=== PATIENT | female | born 1980 | race Caucasian/White ===

== ENCOUNTER 2017-12-09 22:00 | Emergency (ER) | payer SELFPAY ==
[~2017-12-09] VITALS: Ht 157.5 cm; Wt 84.0 kg
[2017-12-09 22:21] VITALS: BP 132/77; PULSE 116; RESP 18; TEMP 102.7; O2SAT 100
[2017-12-09] MEDS ORDERED: cefTRIAXone INJ 1,000 MG in SODIUM CHLORIDE 0.9% INJ 100 ML IV ONE (23:15)
[2017-12-09] MEDS ORDERED: KETOROLAC TROMETHAMINE 30 MG/ML (IVP) VIAL IV PUSH ONE (23:15)
[2017-12-09] MEDS ORDERED: SODIUM CHLOR 0.9% 1000 ML INJ 1,000 ML IV ONE (23:15)
[2017-12-09] MEDS ORDERED: ACETAMINOPHEN 500 MG CPLT PO ONE (23:15)
--- NOTE | 2017-12-09 23:20 | PD ---
HPI Chief Complaint: Cold / Flu Symptoms Time Seen by Provider: 23:04 Travel History International Travel<30 days: No Contact w/Intl Traveler<30days: No Traveled to known affect area: No History of Present Illness HPI 37-year-old female presents emergency department with a four-day history of left lower back pain, subjective fever and chills, lower abdominal pain, dysuria and frequency. She denies any cough, congestion, nausea, vomiting , vaginal discharge or abnormal bleeding. No hematuria. Symptoms are moderate. She is not taking any medications other than [id number]. No alleviating factors. Worsened by movement. PFSH Past Medical History Medical History: Denies Significant Hx Tetanus Vaccination: < 5 Years LMP: Beginning of the month Past Surgical History Narrative Surgical Herniorrhaphy Social History Alcohol Use: No Tobacco Use: No Substance Use: No Allergies-Medications (Allergen,Severity, Reaction): Coded Allergies: No Known Allergies (Unverified , 12/09/17) Reported Meds & Prescriptions Reported Meds & Active Scripts Active Diclofenac Sodium DR (Diclofenac Sodium) 50 Mg Tabdr 50 Mg PO TID Keflex (Cephalexin) 500 Mg Capsule 500 Mg PO Q8H 10 Days Review of Systems General / Constitutional: Positive: Fever, Chills Eyes: No: Visual changes HENT: No: Headaches Cardiovascular: No: Chest Pain or Discomfort Respiratory: No: Shortness of Breath Gastrointestinal: Positive: Abdominal Pain, No: Nausea, Vomiting, Diarrhea Genitourinary: Positive: Frequency, Dysuria, No: Hematuria, Pelvic Pain, Discharge Musculoskeletal: Positive: Myalgias, Limited ROM, Pain (Left flank), No: Arthralgias, Weakness Skin: No Rash Neurologic: No: Weakness Psychiatric: No: Depression Endocrine: No: Polydipsia Hematologic/Lymphatic: No: Easy Bruising Physical Exam Narrative GENERAL: Well-developed, well-nourished in no apparent distress. Nontoxic appearing. HEAD: Normocephalic, atraumatic. EYES: Pupils equal round and reactive. Extraocular motions intact. No scleral icterus. No injection or drainage. ENT: Nose clear. Throat without erythema, tonsillar hypertrophy or exudate. Uvula midline. Airway patent. NECK: Trachea midline. Supple, nontender, moves head freely. No central bony tenderness or spasm. CARDIOVASCULAR: Regular rate and rhythm without murmurs, gallops, or rubs. RESPIRATORY: Clear to auscultation. Breath sounds equal bilaterally. No wheezes , rales, or rhonchi. GASTROINTESTINAL: Abdomen soft, Diffuse lower abdominal tenderness more so on the left than the right., nondistended. No hepato-splenomegaly, or palpable masses. No guarding. No rebound. EXTREMITIES: No clubbing, cyanosis, or edema. No joint tenderness. BACK: Left paralumbar tenderness without deformity. Positive left flank tenderness. NEUROLOGICAL: Awake, alert and oriented x 3 .Cranial nerves grossly intact. Motor and sensory grossly within normal limits. Normal speech. Data Data Last Documented VS Vital Signs Date Time Temp Pulse Resp B/P (MAP) Pulse Ox O2 Delivery O2 Flow Rate FiO2 12/10/17 01:57 98.9 77 18 99/50 (66) 99 Room Air Orders Orders Complete Blood Count With Diff (12/09/17 23:09) Comprehensive Metabolic Panel (12/09/17 23:09) Urinalysis - C+S If Indicated (12/09/17 23:09) Iv Access Insert/Monitor (12/09/17 23:09) Ed Urine Pregnancytest Poc (12/09/17 23:09) Sodium Chlor 0.9% 1000 Ml Inj (Ns 1000 M (12/09/17 23:15) Ceftriaxone Inj (Rocephin Inj) (12/09/17 23:15) Ketorolac Inj (Toradol Inj) (12/09/17 23:15) Acetaminophen (Tylenol) (12/09/17 23:15) Urine Culture (12/09/17 23:30) Ct Abd/Pel W Iv Contrast(Rout) (12/10/17 00:24) Iohexol 350 Inj (Omnipaque 350 Inj) (12/10/17 01:11) Labs Laboratory Tests Test 12/09/17 23:30 White Blood Count 17.3 TH/MM3 Red Blood Count 4.89 MIL/MM3 Hemoglobin 8.9 GM/DL Hematocrit 29.1 % Mean Corpuscular Volume 59.6 FL Mean Corpuscular Hemoglobin 18.2 PG Mean Corpuscular Hemoglobin Concent 30.5 % Red Cell Distribution Width 21.7 % Platelet Count 287 TH/MM3 Mean Platelet Volume 8.4 FL Neutrophils (%) (Auto) 76.9 % Lymphocytes (%) (Auto) 7.4 % Monocytes (%) (Auto) 15.1 % Eosinophils (%) (Auto) 0.3 % Basophils (%) (Auto) 0.3 % Neutrophils # (Auto) 13.3 TH/MM3 Lymphocytes # (Auto) 1.3 TH/MM3 Monocytes # (Auto) 2.6 TH/MM3 Eosinophils # (Auto) 0.0 TH/MM3 Basophils # (Auto) 0.0 TH/MM3 CBC Comment AUTO DIFF Differential Total Cells Counted 100 Neutrophils % (Manual) 65 % Band Neutrophils % 13 % Lymphocytes % 6 % Monocytes % 15 % Basophils % 1 % Neutrophils # (Manual) 13.5 TH/MM3 Differential Comment FINAL DIFF MANUAL Platelet Estimate NORMAL Platelet Morphology Comment NORMAL Basophilic Stippling FAINT Acanthocytes OCC Urine Color YELLOW Urine Turbidity HAZY Urine pH 7.5 Urine Specific [place] 1.010 Urine Protein TRACE mg/dL Urine Glucose (UA) NEG mg/dL Urine Ketones NEG mg/dL Urine Occult Blood NEG Urine Nitrite NEG Urine Bilirubin NEG Urine Urobilinogen LESS THAN 2.0 MG/DL Urine Leukocyte Esterase MOD Urine RBC 1 /hpf Urine WBC 9 /hpf Urine Squamous Epithelial Cells 23 /hpf Microscopic Urinalysis Comment CULTURE INDICATED Blood Urea Nitrogen 7 MG/DL Creatinine 0.86 MG/DL Random Glucose 101 MG/DL Total Protein 8.0 GM/DL Albumin 3.7 GM/DL Calcium Level 8.3 MG/DL Alkaline Phosphatase 49 U/L Aspartate Amino Transf (AST/SGOT) 15 U/L Alanine Aminotransferase (ALT/SGPT) 13 U/L Total Bilirubin 0.3 MG/DL Sodium Level 138 MEQ/L Potassium Level 3.4 MEQ/L Chloride Level 103 MEQ/L Carbon Dioxide Level 25.3 MEQ/L Anion Gap 10 MEQ/L Estimat Glomerular Filtration Rate 74 ML/MIN [facility] Medical Decision Making Medical Screen Exam Complete: Yes Emergency Medical Condition: Yes Medical Record Reviewed: Yes Interpretation(s) CBC & BMP Diagram 12/09/17 23:30 Total Protein 8.0, Albumin 3.7, Calcium Level 8.3 L, Alkaline Phosphatase 49, Aspartate Amino Transf (AST/SGOT) 15, Alanine Aminotransferase (ALT/SGPT) 13, Total Bilirubin 0.3 Laboratory Tests Test 12/09/17 23:30 White Blood Count 17.3 TH/MM3 Red Blood Count 4.89 MIL/MM3 Hemoglobin 8.9 GM/DL Hematocrit 29.1 % Mean Corpuscular Volume 59.6 FL Mean Corpuscular Hemoglobin 18.2 PG Mean Corpuscular Hemoglobin Concent 30.5 % Red Cell Distribution Width 21.7 % Platelet Count 287 TH/MM3 Mean Platelet Volume 8.4 FL Neutrophils (%) (Auto) 76.9 % Lymphocytes (%) (Auto) 7.4 % Monocytes (%) (Auto) 15.1 % Eosinophils (%) (Auto) 0.3 % Basophils (%) (Auto) 0.3 % Neutrophils # (Auto) 13.3 TH/MM3 Lymphocytes # (Auto) 1.3 TH/MM3 Monocytes # (Auto) 2.6 TH/MM3 Eosinophils # (Auto) 0.0 TH/MM3 Basophils # (Auto) 0.0 TH/MM3 CBC Comment AUTO DIFF Differential Total Cells Counted 100 Neutrophils % (Manual) 65 % Band Neutrophils % 13 % Lymphocytes % 6 % Monocytes % 15 % Basophils % 1 % Neutrophils # (Manual) 13.5 TH/MM3 Differential Comment FINAL DIFF MANUAL Platelet Estimate NORMAL Platelet Morphology Comment NORMAL Basophilic Stippling FAINT Acanthocytes OCC Urine Color YELLOW Urine Turbidity HAZY Urine pH 7.5 Urine Specific [place] 1.010 Urine Protein TRACE mg/dL Urine Glucose (UA) NEG mg/dL Urine Ketones NEG mg/dL Urine Occult Blood NEG Urine Nitrite NEG Urine Bilirubin NEG Urine Urobilinogen LESS THAN 2.0 MG/DL Urine Leukocyte Esterase MOD Urine RBC 1 /hpf Urine WBC 9 /hpf Urine Squamous Epithelial Cells 23 /hpf Microscopic Urinalysis Comment CULTURE INDICATED Blood Urea Nitrogen 7 MG/DL Creatinine 0.86 MG/DL Random Glucose 101 MG/DL Total Protein 8.0 GM/DL Albumin 3.7 GM/DL Calcium Level 8.3 MG/DL Alkaline Phosphatase 49 U/L Aspartate Amino Transf (AST/SGOT) 15 U/L Alanine Aminotransferase (ALT/SGPT) 13 U/L Total Bilirubin 0.3 MG/DL Sodium Level 138 MEQ/L Potassium Level 3.4 MEQ/L Chloride Level 103 MEQ/L Carbon Dioxide Level 25.3 MEQ/L Anion Gap 10 MEQ/L Estimat Glomerular Filtration Rate 74 ML/MIN Differential Diagnosis Differential diagnosis: Myofascial back pain, flank pain, pyelonephritis, UTI, diverticulitis, vaginitis, UTI, appendicitis Narrative Course IV access is obtained. Routine laboratory tests of analysis including CBC, chemistry, UA. 1000mg Tylenol p.o., Toradol 30 mg IV. Rocephin [address] of the abdomen and pelvis. The patient's vital signs have been repeated and now she is afebrile and not tachycardic. The patient is feeling better but not resolved. She still has some lower pelvic discomfort. She denies any pelvic or vaginal complaints. She has uterine fibroid noted on the CAT scan but no obvious acute intra- abdominal process. Patient has numerous squamous cells but does have some WBCs and this may be a urinary tract infection along with myofascial back pain. I have also discussed other etiologies of her pain including viral gastroenteritis. The patient is encouraged to recheck tomorrow with the [facility] or recheck in the ER in 12-24 hours if she cannot be seen. She is also advised to return to the ER sooner if symptoms worsen. Patient is also made aware for uterine fibroid on her CAT scan. I suspect her anemia is secondary to her uterine fibroid in dysfunctional bleeding. This is abdominal pain, UTI, back pain Diagnosis Primary Impression: Abdominal pain Additional Impressions: UTI Back pain Referrals: [facility] 1 day Patient Instructions: General Instructions Additional Instructions: Rest. Force fluids. Diclofenac. Keflex. Recheck with the [facility] tomorrow. If you cannot recheck with the [facility] recheck in 12-24 hours with the ER. Return to the ER sooner if any problems worsen or do not start to improve or if symptoms worsen. Med/Other Pt SpecificInfo: Prescription(s) given Scripts Diclofenac Sodium DR (Diclofenac Sodium DR) 50 Mg Tabdr 50 MG PO TID, #21 TAB 0 Refills Prov: Adan Grimaldo MD 12/10/17 Cephalexin (Keflex) 500 Mg Capsule 500 MG PO Q8H for Infection for 10 Days, #30 CAP 0 Refills Prov: Adan Grimaldo MD 12/10/17 Disposition: 01 DISCHARGE HOME Condition: Stable Jose Garcia Dec 09, 2017 23:20
[2017-12-09 23:51] LABS: AUTOMATED NEUTROPHIL # 13.3 TH/MM3 (1.8-7.7); BASOPHIL % 0.3 % (0.0-2.0); EOSINOPHIL % 0.3 % (0.0-4.0); HEMATOCRIT 29.1 % (35.0-46.0); HEMOGLOBIN 8.9 GM/DL (11.6-15.3); LYMPH % 7.4 % (9.0-44.0); LYMPHOCYTE # 1.3 TH/MM3 (1.0-4.8); MEAN CELL VOLUME 59.6 FL (80.0-100.0); MEAN CORPUSCULAR HEMOGLOBIN 18.2 PG (27.0-34.0); MEAN CORPUSCULAR HGB CONC 30.5 % (32.0-36.0); MEAN PLATELET VOLUME 8.4 FL (7.0-11.0); MONO % 15.1 % (0.0-8.0); MONOCYTE # 2.6 TH/MM3 (0-0.9); NEUT % 76.9 % (16.0-70.0); PLATELET COUNT 287 TH/MM3 (150-450); RED BLOOD COUNT 4.89 MIL/MM3 (4.00-5.30); RED CELL DISTRIBUTION WIDTH 21.7 % (11.6-17.2); WHITE BLOOD COUNT 17.3 TH/MM3 (4.0-11.0)
[2017-12-10 00:06] LABS: BILIRUBIN, URINE NEG (NEG); BLOOD, URINE NEG (NEG); GLUCOSE,URINE NEG (NEG); KETONE, URINE NEG (NEG); NITRITE,URINE NEG (NEG); PH, URINE 7.5 (5.0-8.5); SQUAMOUS EPITHELIAL CELL URINE 23 /hpf (0-5); URINE COLOR YELLOW (YELLW/STRAW); URINE LEUKOCYTE ESTERASE MOD (NEG)
[2017-12-10 00:08] LABS: ALBUMIN 3.7 GM/DL (3.4-5.0); AST (GOT) 15 U/L (15-37); BICARBONATE 25.3 MEQ/L (21.0-32.0); BLOOD UREA NITROGEN 7 MG/DL (7-18); CALCIUM 8.3 MG/DL (8.5-10.1); CHLORIDE 103 MEQ/L (98-107); CREATININE 0.86 MG/DL (0.50-1.00); GLOMERULAR FILTRATION RATE 74 ML/MIN (>89); GLUCOSE,RANDOM 101 MG/DL (74-106); SODIUM (NA) 138 MEQ/L (136-145)
[2017-12-10 00:11] LABS: ALKALINE PHOSPHATASE 49 U/L (45-117); ALT (GPT) 13 U/L (10-53); TOTAL BILIRUBIN ADULT 0.3 MG/DL (0.2-1.0)
[2017-12-10 00:31] LABS: BANDS 13 % (0-6); BASOPHILS 1 % (0-2); LYMPHOCYTES 6 % (9-44); MONOCYTES 15 % (0-8); NEUTROPHIL # MANUAL DIFF 13.5 TH/MM3 (1.8-7.7); POLYS (SEG NEUTROPHILS) 65 % (16-70)
[2017-12-10 00:34] LABS: ACANTHOCYTES OCC (NORMAL)
[2017-12-10] MEDS ORDERED: IOHEXOL 350 MG/ML 10 ML VIAL (for RAD DIAG) IVCONTRAST ONE (01:11)
--- NOTE | 2017-12-10 01:43 | RADRPT ---
EXAM DATE/TIME: 12/10/2017 01:07 [place] COMPARISON: No previous studies available for comparison. INDICATIONS : Abdominal pain. Fever. IV CONTRAST: 100 cc Omnipaque 350 (iohexol) IV ORAL CONTRAST: No oral contrast ingested. RADIATION DOSE: 12.18 CTDIvol (mGy) MEDICAL HISTORY : None SURGICAL HISTORY : None. ENCOUNTER: Initial ACUITY: 1 day PAIN SCALE: 5/10 LOCATION: abdomen TECHNIQUE: Volumetric scanning of the abdomen and pelvis was performed. Using automated exposure control and ad justment of the mA and/or kV according to patient size, radiation dose was kept as low as reasonably achievable to obtain optimal diagnostic quality images. DICOM format image data is available electro nically for review and comparison. FINDINGS: LOWER LUNGS: The visualized lower lungs are clear. LIVER: Homogeneous density without lesion. There is no dilation of the biliary tree. No calcified gallston es. SPLEEN: Normal size without lesion. PANCREAS: Within normal limits. KIDNEYS: Normal in size and shape. There is no mass, stone or hydronephrosis. ADRENAL GLANDS: Within normal limits. VASCULAR: There is no aortic aneurysm. BOWEL/MESENTERY: There are multiple loops of nondilated air-containing small bowel with multiple small air-fluid level s. There is no free intraperitoneal air or fluid. ABDOMINAL WALL: Within normal limits. RETROPERITONEUM: There is no lymphadenopathy. BLADDER: No wall thickening or mass. REPRODUCTIVE: Uterus is prominent with ill-defined large mass like area with apparent deviation of the endometrium to the right. This is most consistent with large leiomyoma. INGUINAL: There is no lymphadenopathy or hernia. MUSCULOSKELETAL: Within normal limits for patient age. CONCLUSION: 1. Prominent uterus with apparent large leiomyoma which is not well-defined. 2. Nonspecific, nonobstructive bowel gas pattern which may represent a mild ileus and/or gastroenteri tis. Lawrence Wild MD on December 10, 2017 at 1:36 Board Certified Radiologist. This report was verified electronically.
[2017-12-10 01:57] VITALS: BP 99/50; PULSE 77; RESP 18; TEMP 98.4; TEMP 98.9; O2SAT 99
[2017-12-10] MEDS ORDERED: CEPH-460 PO (02:09)
[2017-12-10] MEDS ORDERED: DICL50TA3 PO (02:09)
[2017-12-10 02:20] VITALS: RESP 20
== END 2017-12-10 02:28 | disposition home or self-care (01) ==
LOC: NEPD 22:00
DX: N39.0 Urinary tract infection, site not specified (principal); M54.5 Low back pain; D25.9 Leiomyoma of uterus, unspecified; R50.9 Fever, unspecified
CPT/HCPCS: 74177; 80053; 81001; 84703; 85007; 85027; 87077; 87086; 87186; 96361; 96365; 96375; 99284; J0696; J1885; J7030; Q9967